=== PATIENT | male | born 1975 | race African-American/Black ===

== ENCOUNTER 2020-08-05 19:29 | Emergency (ER) | payer MEDICAID ==
[~2020-08-05] VITALS: Ht 185.4 cm; Wt 59.0 kg
[~2020-08-05 19:29] MED LIST: HYDR-4009
[2020-08-05 20:15] VITALS: BP 144/85
== END 2020-08-05 22:00 | disposition home or self-care (01) ==
LOC: ER 19:29
DX: Z46.6 Encounter for fitting and adjustment of urinary device (principal); N31.9 Neuromuscular dysfunction of bladder, unspecified; G82.20 Paraplegia, unspecified; F12.10 Cannabis abuse, uncomplicated; Z87.828 Personal history of other (healed) physical injury and trauma; Z93.3 Colostomy status; Z99.3 Dependence on wheelchair; Z86.718 Personal history of other venous thrombosis and embolism; Z79.01 Long term (current) use of anticoagulants
CPT/HCPCS: 99281; Z7610